=== PATIENT | male | born 1995 | race Caucasian/White ===

== ENCOUNTER 2021-10-27 12:04 | Emergency (ER) | payer MEDICAID ==
[~2021-10-27] VITALS: Ht 177.8 cm; Wt 100.0 kg
[2021-10-27 12:45] VITALS: BP 145/73
== END 2021-10-27 19:03 | disposition left against medical advice (07) ==
LOC: ER 13:04
DX: Z53.21 Procedure and treatment not carried out due to patient leaving prior to being seen by health care provider (principal)